=== PATIENT | female | born 1955 | race Caucasian/White ===

== ENCOUNTER → 2016-05-26 | Outpatient (CLI) | payer BC ==
--- NOTE | 2016-05-26 11:51 | RAD ---
APPROVED REPORT Test Type: Pharmacological Stress Nurse/Tech: Pam Joshi R.N. Test Indications: c/p Cardiac History: Murmur? Medications: See Electronic Medical Record Medical History: See Electronic Medical Record Resting ECG: SR Resting Heart Rate: 73 bpm Resting Blood Pressure: 142/76mmHg Pretest Chest Pain: No chest pain Nurse/Tech Notes S1S2, lungs CTA Consent: The procedure was explained to the patient in lay terms. Informed consent was witnessed. Efrain eout was entered into [employer]. History and Stress Test performed by AHMET Carranza Stress Symptoms Dyspnea POST EXERCISE Reason for Termination: Reached target heart rate Target HR: Yes Max HR: 157 bpm 118% of Maximum Predicted HR: 133 bpm Exercise duration: 5:59 min:sec, 2 Stage Exercise capacity: 7METs Max Blood Pressure: 170/90mmHg Blood Pressure response to exercise: Normal blood pressure response during stress. Heart Rate response to exercise: wnl Chest Pain: No. Arrhythmia: No. ST Change: Yes. Deviation: 1.5 mm INTERPRETATION Stress EKG Conclusion: At baseline no significant EKG changes noted. At peak stress there were non-sp ecific ST segment depression of approximately 1.5mm suggestive of but not diagonstic of ischemic resp onse at low threshold. Consider further evaluation with imaging studies. Conclusion 1. Below average exercise capacity. 7.0 mets achieved with appropriate BP response. 2. EKG changes suggestive but not diagnostic of ischemia with 1.5mm inferolateral ST segment depressi on. 3. Consider repeat stress with pharmacologic evaluation to include imaging.
== END | disposition home or self-care (01) ==
LOC: NM 09:15
PROVIDERS: ATTEND Physician Assistant Medical
DX: R07.9 Chest pain, unspecified (principal); Z82.49 Family history of ischemic heart disease and other diseases of the circulatory system; Z87.891 Personal history of nicotine dependence
CPT/HCPCS: 93017

== ENCOUNTER → 2016-05-30 | Outpatient (CLI) | payer BC ==
--- NOTE | 2016-05-30 14:43 | KCIC ---
Exam:TOES RIGHT Indication:Reason For Study Reason: RIGHT TOE PAIN CHRONIC 2ND DIGIT, HAMMER TOE, NO INJURY / Spl. Instructions: / History: Findings: There is no fracture or dislocation. Alignment is maintained. There is degeneration of the 1st metatarsophalangeal joint. Impression: - No fracture dislocation. 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 Electronically signed by: Broderick Price (May 30, 2016 14:42:02)
--- NOTE | 2016-05-30 17:16 | KCIC ---
Bilateral digital screening mammograms with CAD: HISTORY Routine screening. COMPARISON Comparison is made to previous study dated 03/27/2014. FINDINGS Breast density category A. The skin and nipples show no abnormalities. No abnormal lymph nodes are seen in the axilla. The breast parenchyma is predominately fatty. There are no dominant masses, suspicious calcifications or architectural distortions. IMPRESSION No evidence of malignancy. Recommend routine annual mammographic screening. This study was interpreted with the benefit of Computerized Aided Detection (CAD). Mammography is not 100% sensitive in detecting breast cancer. Therefore, a self breast exam and a clinical breast exam are very important. A negative mammogram does not negate a clinically suspicious finding and should not result in a delay in biopsying a clinically suspicious abnormality. BI-RADS category 1. Negative. This patient's information has been entered into a reminder system for the patient to be notified with the results of this examination and a target date for her next mammograms. Electronically signed by: Nati Lopez MD (May 30, 2016 17:15:01)
== END | disposition home or self-care (01) ==
LOC: KCIC 12:53
PROVIDERS: ATTEND Physician Assistant Medical
DX: Z12.31 Encounter for screening mammogram for malignant neoplasm of breast (principal); M19.079 Primary osteoarthritis, unspecified ankle and foot; M20.41 Other hammer toe(s) (acquired), right foot; M79.674 Pain in right toe(s)
CPT/HCPCS: 73660; G0202; 77052; 77067

== ENCOUNTER → 2016-10-18 | Outpatient (CLI) | payer BC ==
[~2016-10-18] MED LIST: BISA-42 PO; PNV1TABL25 PO
--- NOTE | 2016-10-18 13:58 | KCIC ---
EXAM: Pelvis and right hip, 3 views. HISTORY: Arthroplasty. COMPARISON: 12/01/2015 FINDINGS: A frontal view the pelvis and frontal and frog leg views of the right hip are obtained. There is a right hip arthroplasty in expected position. There is no evidence of loosening or periprosthetic fracture. There is degenerative change of the lower lumbar levels. The left femoral head is normal in configuration. IMPRESSION: 1. Right hip arthroplasty in expected position. 2. No acute osseous finding. Electronically signed by: Renee Pagan MD (10/18/2016 1:55 PM)
== END | disposition home or self-care (01) ==
LOC: KCIC 12:42
PROVIDERS: ATTEND Physician Assistant Medical
DX: Z96.641 Presence of right artificial hip joint (principal)
CPT/HCPCS: 73502

== ENCOUNTER → 2016-10-25 | Outpatient (CLI) | payer BC ==
[~2016-10-25] MED LIST changes: +HYDR-971 PO; +IBUP-1060 PO
--- NOTE | 2016-10-25 12:41 | KCIC ---
Right Knee Three Views Indication: Left knee pain. Right knee for comparison Findings: There is no evidence of fracture or dislocation. No opaque foreign bodies overlie the soft tissues. No lytic or blastic lesions are seen. There is mild tricompartmental osteoarthrosis manifested as osteophyte formation. No joint effusion. Impression: Mild degenerative disc disease without evidence for fracture or dislocation. Electronically signed by: Broderick Price MD (10/25/2016 12:37 PM)
--- NOTE | 2016-10-25 12:43 | KCIC ---
Left knee Three Views Clinical Data: Left knee pain There is no evidence of fracture or dislocation. No opaque foreign bodies overlie the soft tissues. No lytic or blastic lesions are seen. There is mild tricompartmental osteoarthrosis manifested as osteophyte formation. Impression: Mild tricompartmental osteoarthrosis. Electronically signed by: Broderick Price MD (10/25/2016 12:40 PM)
== END | disposition home or self-care (01) ==
LOC: KCIC 10:54
PROVIDERS: ATTEND Physician Assistant Medical
DX: M17.12 Unilateral primary osteoarthritis, left knee (principal)
CPT/HCPCS: 73562

== ENCOUNTER → 2016-10-27 | Day surgery (SDC) | payer BC ==
[~2016-10-27] VITALS: Ht 170.2 cm; Wt 106.6 kg
[~2016-10-27] MED LIST changes: +BUPIVACAINE MPF 0.5% 30 ML VIAL. ONE; +CLINDAMYCIN 600MG PREMIX 50 ML IV ONE; +DEXAMETHASONE SOD PHOS 20 MG/5 ML VIAL. ONE; +DEXAMETHASONE SOD PHOS 4 MG/ML VIAL ONE; +HYDROmorphone 2 MG/ML VIAL IV PRN; +IV RINGERS,LACTATED 1000ML 1,000 ML IV SCH; +LIDOCAINE 1% 1 ML SYRINGE. ID PRN; +LIDOCAINE 1% 20 ML VIAL. ONE; +LIDOCAINE 2% PF Vial for OR 5 ML VIAL. ONE; +MORPHINE SULFATE 2 MG/ML DISP.SYRIN. IV PRN; +ONDANSETRON PF 4 MG/2 ML VIAL. IV PRN; +ONDANSETRON PF 4 MG/2 ML VIAL. ONE; +PHENYLEPHRINE in 0.9% NACL PF 1 MG/10 ML DISP.SYRIN. IV ONE; +POVIDONE-IODINE 10% TOPICAL OINTMENT 28GM TUBE. TP ONE; +PROCHLORPERAZINE 10 MG/2 ML VIAL. IV PRN; +PROPOFOL 20 ML IV ONE; +SEVOFLURANE 61 TO 120 MINUTES. IH ONE; +SEVOFLURANE > 120 MINUTES. IH ONE; +ePHEDrine PF IN SALINE 50 MG/5 ML DISP.SYRIN IV ONE; +fentaNYL PF VIAL 100 MCG/2 ML VIAL IV PRN; +fentaNYL PF VIAL 100 MCG/2 ML VIAL ONE
[2016-10-27 09:51] LABS: BASO # 0.1 x10^3/uL (0.0-0.2); BASO % 1 % (0-3); EOS % 3 % (0-3); HEMATOCRIT 40.6 % (36.0-47.0); HEMOGLOBIN 13.7 g/dL (12.0-15.5); LYMPH # 1.8 x10^3/uL (1.0-4.8); LYMPH % 33 % (24-48); MEAN CORPUSCULAR HEMOGLOBIN 29 pg (25-35); MEAN CORPUSCULAR HGB CONC 34 g/dL (31-37); MEAN CORPUSCULAR VOLUME 85 fL (79-100); MONO % 10 % (0-9); NEUT % 52 % (31-73); PLATELET COUNT 318 x10^3/uL (140-400); RED BLOOD COUNT 4.76 x10^6/uL (3.50-5.40); RED CELL DISTRIBUTION WIDTH 13.6 % (11.5-14.5); WHITE BLOOD COUNT 5.3 x10^3/uL (4.0-11.0)
[2016-10-27 10:02] LABS: CALCIUM 9.5 mg/dL (8.5-10.1); CREATININE 0.8 mg/dL (0.6-1.0); GFR 72.4; POTASSIUM 3.9 mmol/L (3.5-5.1)
--- NOTE | 2016-10-27 13:50 | PDOC4 ---
Operative Note Operative Note Surgeon: Brando Pre operative diagnosis: Hallux valgus right, Hammer toe 2nd and 3rd toe right Post operative diagnosis: Same Procedure: Scarf bunionectomy, Arthrodesis 2nd and 3rd digit with extensor brevis tenotomy right foot Anesthesia: LMA with local Hemostasis: Right ankle tourniquet at 250mmHg EBL: 0mL Materials: 3.5 and 2.7 fully threaded cortical screw integra titatium and 0.045 kwire Intra operative findings: note loose cartilage to central lateral 1st metatarsal head measures 0.4x0.2cm defect Patient tolerated anesthesia and procedure well. transferred to PACU with VSS and VSI to right foot DAWSON PATEL DPM Oct 27, 2016 13:50
--- NOTE | 2016-10-27 14:38 | RAD ---
Portable right foot, 3 views, 10/27/2016: History: Postop evaluation, bunionectomy Comparison is made to a study from 05/30/2016. A partially radiopaque bandage overlies the forefoot. An osteotomy involving the distal first metatarsal is evident. There are 2 surgical screws at the osteotomy site. There are longitudinally oriented surgical pins extending through the phalanges of the second and third toes. Alignment appears to be anatomic. There is no evidence of a retained surgical instrument, needle or radiopaque sponge on these views.
[2016-10-27 15:05] VITALS: BP 119/77
--- NOTE | 2016-10-27 17:08 | OP ---
DATE OF SURGERY: 10/27/2016 PREOPERATIVE DIAGNOSIS: Hallux valgus and Hammer digit syndrome, second digit and third digit of the right foot. POSTOPERATIVE DIAGNOSIS: Hallux valgus and Hammer digit syndrome, second digit and third digit of the right foot. PROCEDURE: Scarf bunionectomy, right foot; arthrodesis of second and third digit of the right foot with extensor brevis tenotomy of second and third digit at the metatarsophalangeal joint. ANESTHESIA: LMA with local. HEMOSTASIS: Right ankle tourniquet at 250 mmHg. INDICATIONS: The patient is a 61-year-old female who complains of painful second and third toes of the right foot as well as a painful bump to the right first metatarsal head consisting with bunion. The patient relates difficulty in shoegear, has failed conservative treatment of wider shoes, accommodative padding and would like to proceed with the above-said procedure. Discussed possible risks, benefits, and complications to include infection, need for further surgery, delayed healing or nonhealing, loss of toe purchase, numbness, tingling, burning, chronic pain, DVT, pulmonary embolism, stiff toe, or shorter toe. The patient understands and agrees with the above-said procedure. The patient signed consent freely. All questions were answered. DESCRIPTION OF PROCEDURE: The patient was transferred to the Operating Room via a cart and placed on the operating table in supine position. The patient was given IV clindamycin preoperatively. LMA was started by Anesthesia, and a well-padded tourniquet was placed over the right ankle. The right foot, performed a local block with a Barger block and digital block to the second and third toes consisting of a 1:1 mixture of 1% lidocaine plain and 0.5% Marcaine plain. Timeout was taken to verify the patient, surgery, and limb to be performed. The right foot was then prepped and draped in the usual aseptic manner. An Esmarch bandage was used to exsanguinate the right foot, and the right ankle tourniquet was inflated to 250 mmHg. Attention was first directed to the first ray where a 6 cm incision was made medial to the extensor hallucis longus. Incision was deepened, and small vessels were cauterized. It was deepened to the level of the joint capsule, and a linear incision was made to the joint capsule and reflected the capsule from the distal 3/4 of the first metatarsal. It was noted a small tear with this cartilage to the center lateral metatarsal head which was 04 x 0.2. This was debrided, and 0.045 K-wire was then used to drill the head at that point to simulate fibrocartilage. Next, a sagittal saw was used to resect the medial eminence of the first metatarsal head. Lateral release was then performed. Next, a Z-osteotomy was made to the medial first metatarsal. The distal fragment was then transposed medially 3 mm and was held with temporary clamp. Then, solid fixation was achieved. Used the Integra, fully-threaded, cortical screws. A 3.5 was placed distally, and a 2.7 was placed proximally. Please note, originally 2.7, 14 mm was placed and was not getting good biting, not good fixation. Thus, we went up to a 3.5, and solid fixation was achieved. The overhanging bone was resected with a sagittal saw and resected the dorsal eminence of the first metatarsal head with a sagittal saw. The wound was then copiously irrigated with sterile saline, and the joint capsule was reapproximated with 2-0 Vicryl. Skin was reapproximated with 3-0 Vicryl and 4-0 nylon. Noted satisfactory alignment of the first ray. Next, attention was directed to the second and third toes. Linear incision was made over the proximal interphalangeal joint 3 cm each, and the small vessels were reflected from the joint and transversely resected the extensor tendon at the proximal phalangeal joint, and the medial and lateral collateral ligaments were then retracted from the joint as well. Next, a sagittal saw was used to resect the head of the proximal phalanx of both the second and the third toes as well as the base of the middle phalanx of the second and third toes. Next, a 0.045 K-wire was used to go for it through the middle and distal phalanx and then forwarded through the proximal phalanx and noted proper alignment of the proximal and middle phalanx on both the second and the third toe. The K-wires were then cut and capped, noted that there was still slight extension at the MPJ. Thus, a 0.5 cm incision was made along the extensor tendon and found the extensor brevis tendon and was transversely resected. Same was done to the third metatarsophalangeal joint ____ incision and resected the extensor brevis tendon. Noted satisfactory alignment of the digits, and at this time, the postop injection was given of 0.5% Marcaine plain, and 2 mL of 4 mg of Decadron was then administered to the surgical sites. The patient tolerated anesthesia and procedure well. We applied a postoperative dressing with Betadine ointment, Adaptic gauze, 4x4s, Kerlix and an Vincenzo bandage. The patient is to keep the bandage clean, dry, and intact. We will plan for x-rays in postop, and postop instructions are in the chart. DAWSON PATEL DPM DR: Brian JOB#: [id number] / [id number]
== END | disposition home or self-care (01) ==
LOC: SURG 08:31
PROVIDERS: ATTEND Podiatrist Foot & Ankle Surgery
DX: M20.11 Hallux valgus (acquired), right foot (principal); M20.41 Other hammer toe(s) (acquired), right foot; E66.9 Obesity, unspecified; F17.200 Nicotine dependence, unspecified, uncomplicated; Z90.710 Acquired absence of both cervix and uterus; Z96.641 Presence of right artificial hip joint; Z88.0 Allergy status to penicillin; Z91.048 Other nonmedicinal substance allergy status
CPT/HCPCS: 28285; 28296; 36415; 73630; 80048; 85027; J1100; J2370; J2405; J2704; J3010; J3490; C1713; C1769

== ENCOUNTER → 2018-08-01 | Outpatient (CLI) | payer BC ==
[2016-10-27 15:05] VITALS: BP 119/77
[~2018-08-01] MED LIST changes: -BUPIVACAINE MPF 0.5% 30 ML VIAL. ONE; -CLINDAMYCIN 600MG PREMIX 50 ML IV ONE; -DEXAMETHASONE SOD PHOS 20 MG/5 ML VIAL. ONE; -DEXAMETHASONE SOD PHOS 4 MG/ML VIAL ONE; +HYDR-3164 PO; -HYDR-971 PO; -HYDROmorphone 2 MG/ML VIAL IV PRN; -IV RINGERS,LACTATED 1000ML 1,000 ML IV SCH; -LIDOCAINE 1% 1 ML SYRINGE. ID PRN; -LIDOCAINE 1% 20 ML VIAL. ONE; -LIDOCAINE 2% PF Vial for OR 5 ML VIAL. ONE; -MORPHINE SULFATE 2 MG/ML DISP.SYRIN. IV PRN; -ONDANSETRON PF 4 MG/2 ML VIAL. IV PRN; -ONDANSETRON PF 4 MG/2 ML VIAL. ONE; -PHENYLEPHRINE in 0.9% NACL PF 1 MG/10 ML DISP.SYRIN. IV ONE; -POVIDONE-IODINE 10% TOPICAL OINTMENT 28GM TUBE. TP ONE; -PROCHLORPERAZINE 10 MG/2 ML VIAL. IV PRN; -PROPOFOL 20 ML IV ONE; -SEVOFLURANE 61 TO 120 MINUTES. IH ONE; -SEVOFLURANE > 120 MINUTES. IH ONE; -ePHEDrine PF IN SALINE 50 MG/5 ML DISP.SYRIN IV ONE; -fentaNYL PF VIAL 100 MCG/2 ML VIAL IV PRN; -fentaNYL PF VIAL 100 MCG/2 ML VIAL ONE
--- NOTE | 2018-08-01 15:52 | RAD ---
DATE: 08/01/2018 EXAM: MAMMO BABS SCREENING BILATERAL HISTORY: Routine screening COMPARISON: 05/30/2016 This study was interpreted with the benefit of Computerized Aided Detection (CAD). Breast Density: FATTY The breast parenchyma is primarily fatty replaced. Breast parenchyma level density A. FINDINGS: 2-D and 3-D tomosynthesis imaging was performed in CC and MLO projections. No new or enlarging breast densities are seen. Benign type calcifications are present. No suspicious microcalcifications have developed. IMPRESSION: Stable mammograms without evidence of malignancy. BI-RADS CATEGORY: 2 BENIGN FINDING(S) RECOMMENDED FOLLOW-UP: 12M 12 MONTH FOLLOW-UP PQRS compliance statement: Patient information was entered into a reminder system with a target due date for the next mammogram. Mammography is a sensitive method for finding small breast cancers, but it does not detect them all and is not a substitute for careful clinical examination. A negative mammogram does not negate a clinically suspicious finding and should not result in delay in biopsying a clinically suspicious abnormality. "Our facility is accredited by the [employer] Mammography Program."
== END | disposition home or self-care (01) ==
LOC: MAMMO 15:08
PROVIDERS: ATTEND Physician Assistant Medical
DX: Z12.31 Encounter for screening mammogram for malignant neoplasm of breast (principal)
CPT/HCPCS: 77063; 77067

== ENCOUNTER → 2021-06-29 | Outpatient (CLI) | payer MEDICARE ==
[2016-10-27 15:05] VITALS: BP 119/77
--- NOTE | 2021-06-29 10:33 | KCIC ---
EXAM: DUAL ENERGY X-RAY ABSORPTIOMETRY (DEXA). HISTORY: Postmenopausal screening. FINDINGS: The lowest measured T-score is -0.8 in the left forearm, based on a bone mineral density of 0.5-3 g/cm^2. Refer to the worksheets for full detail. No comparison examinations are available. IMPRESSION: 1. Normal. Bone mineral density yields a T-score of -1.0 or greater. Fracture risk is low. 2. FRAX report: Not calculated. METHODOLOGY: Dual energy x-ray absorptiometry was performed to measure bone mineral density. The foll owing analysis is based on the 2019 Official Positions of the International Society for Clinical Dens itometry: Measurements of the hips and the average of L1-L4 are preferred. When the spine and/or hip cannot be feasibly measured or interpreted, or in the setting of hyperparathyroidism, distal radial bone minera l density may be measured. The lumbar spine T-score is based on the average bone mineral density of L1-L4. In the setting of art ifact or anatomic abnormality, some lumbar levels may be excluded, and the remaining levels used for calculation. A single lumbar level is not used for diagnosis, and if only a single level is available for assessment, another anatomic site will be used to assign a diagnosis. The hip T-score is based on the bone mineral density measurement of the femoral neck or total proxima l femur of either side, whichever is lowest. Bilateral mean values are not used for diagnosis. The forearm T-score is derived from 33% of the distal radius of the nondominant forearm. Electronically signed by: Renee Pagan MD (06/29/2021 10:31 AM) [id number]
--- NOTE | 2021-06-29 14:33 | KCIC ---
Bilateral digital screening mammograms with 3-D tomosynthesis: Reason for examination: Routine screening. Comparison is made to previous studies dated back to 03/27/2014. Bilateral mammograms in CC and oblique projections were obtained with 2-D imaging and 3-D tomosynthes is imaging on a [employer] unit and reviewed on the workstation. Interpretation was made with the benefit of CAD. The skin and nipples show no abnormalities. No abnormal axillary lymph nodes are seen. The breast par enchyma is predominantly fatty. (Breast density: Category A.) There are small foci of rim calcified f at necrosis bilaterally. There are no dominant masses, suspicious calcifications or architectural dis tortion. Impression: No evidence of malignancy. Recommend routine screening. BI-RAD Category 2: Benign. "Our facility is accredited by the [employer] Mammography Program." This patient's information has been entered into a reminder system for the patient to be notified wit h the results of her examination and a target date for the next mammogram. Electronically signed by: Dee Lopez MD (06/29/2021 2:31 PM) [id number]
== END ==
LOC: KCIC MAMMO 08:41
PROVIDERS: ATTEND Family Medicine
DX: Z12.31 Encounter for screening mammogram for malignant neoplasm of breast (principal); Z78.0 Asymptomatic menopausal state
CPT/HCPCS: 77063; 77067; 77080